=== PATIENT | female | born 1955 | race Caucasian/White ===

== ENCOUNTER 2023-02-02 13:03 | Outpatient (AMB) | payer BC, SELFPAY ==
[2023-02-02 13:06] VITALS: BP 128/84; BMI 34.0
--- NOTE | 2023-02-02 13:06 | A.OFFVIS_ITS ---
Intake Vital Signs 02/02/23 13:06 Height 5 ft 4 in Weight 198 lb 2 oz BMI 34.0 BP 128/84 Blood Pressure Location Lt brachial Position Sitting Intake Visit Reasons: ENP-Cognitive Assessment-Confirmed Allergies methimazole [From Tapazole] Allergy (Severe, Verified 02/02/23 13:12) Hives cephapirin [From Cefadyl] Allergy (Mild, Verified 02/02/23 13:12) Hives nitroglycerin Allergy (Mild, Verified 02/02/23 13:12) Chest Pain HPI HPI Comments History of Present Illness Details 67 y/o female patient presents for [facility] n-person visit for evaluation of cognitive difficulties. Pt reports difficulty concentrating, remembering, problem solving and organizing. The symptoms have worsened after COVID-19 (she had COVID in Nov, 2021). Pt has hx of severe degree of CHUN, ADD, anxiety and depression. Pt had a brain MRI and MRA (May,) done. MRI result was diffuse white matter changes with global volume loss. 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 In December, after returning to work after Covid-19, she had difficulty completing her job, increased significantly to the point that she would come in on her days off to complete the task. In Mar 2022, she has received partially meets expectation on her employee review for the first time. Also she had medication error when she was completing a final verification for a controlled substance. She was interrupted to combine a different package. At time she accidentally added the incorrect medications to the package resulting in a controlled substance error. At the time of the evaluation, she taken a medical leave from her job. Pt had a neuropsychology evaluation done 09/05 and recommendation for accommodation at work if/when she tries to return to pharmacy, but patient does not feel ready to return. Pt tried stimulant to manage ADD, but not tolerated. She also had defect and open heart surgery, not recommended to have stimulant for ADD. She is on bupropion now, tolerating but no memory improvement. She sees her therapist weekly to manage depression and anxiety. She has hx of severe degree of sleep apnea, diagnosed in 2010. She was 255 lb at that time, she lost about 60 lb, no repeat sleep done since then. Pt reports he had a lab done in May, and was told that the result was WNL. [facility] Surgical History (Updated 02/02/23 @ 13:15 by Anna Munoz) History of open heart surgery Family History (Updated 02/02/23 @ 13:17 by Anna Munoz) Mother Heart abnormality Brother Obesity Social History (Updated 02/02/23 @ 13:17 by Anna Munoz) Household Members: None Alcohol intake: never Patient Tobacco Use Status: Never used Tobacco Review of Systems Const All systems reviewed & are unremarkable except as noted in HPI and below Physical Exam Vital Signs: Last Vital Signs BP 128/84 02/02/23 13:06 BMI result Body Mass Index 34.0 Const General: cooperative and anxious Nutritional Appearance: obese Orientation/consciousness: patient oriented x3 Neck Neck: Yes full ROM and Yes supple Resp Effort & Inspection: normal respiratory effort and able to speak in complete sentences Neuro General: patient oriented x3, gait normal, moves all extremities and CN's II-XI intact bilaterally Cranial nerves: Yes CN's II-XII intact bilaterally Cognition (Neuro): normal cognition Gait exam (Neuro): Normal gait present Motor exam (neuro): 5/5 motor strength present throughout, Pronator motor function not present and no tremor noted Deep tendon reflexes (DTR's): Rt Biceps (C5, C6): 2+, Left biceps reflex intensity grade: 2+, Right brachioradialis reflex intensity grade: 2+, Left brachioradialis reflex intensity grade: 2+, Right patellar reflex intensity grade: 2+ and Left patellar reflex intensity grade: 2+ Psych Appearance: grossly normal Mental Status: mental status grossly normal Speech and movement: Normal speech and movement present Affect: Anxious affect present Attitude: cooperative Orientation What is the (year) (season) (date) (day) (month)?: year, season, date, day and month Where are we (state) (county) (town or city) (hospital) (floor)?: state, county, town or city and hospital/clinic Registration Name of 3 unrelated objects clearly and slowly, then ask patient to repeat all 3 of them. (1st repeat determines score. Make sure they can repeat all three): object 1, object 2 and object 3 Attention & Calculation (CHOOSE ONE) Spell WORLD backwards (DLROW): 5 letters Recall Ask patient to repeat the 3 items from question #3.: object 1, object 2 and object 3 Language Show patient a wristwatch & ask what it is. Repeat for pencil.: watch and pencil Ask the patient to repeat the phrase 'No ifs, ands, or buts' after you.: correct Ask the patient to 'take a piece of paper with their right hand' 'fold paper in half' 'place paper on floor': take paper in right hand, fold paper in half and place paper on floor Print the sentence 'CLOSE YOUR EYES' on a piece. If patient actually closes eyes then score.: followed written direction Give patient a blank piece of paper & ask to write a sentence. Score if it contains a noun & verb.: sentence contains subject and verb Ask patient to copy figure of intersecting pentagons exactly. Score if all 10 angles & 2 intersects are included.: all 10 angles present & 2 are intersected Score Score: 29 Assessment & Plan Assessment & Plan (1) ADHD (attention deficit hyperactivity disorder): Code(s): F90.9 - Attention-deficit hyperactivity disorder, unspecified type (2) Cognitive impairment: Code(s): R41.89 - Other symptoms and signs involving cognitive functions and awareness (3) CHUN on CPAP: Comment: Hx of severe degree of sleep apnea. The AHI was 50/hr. Code(s): G47.33 - Obstructive sleep apnea (adult) (pediatric) Plan Pt did well on MMSE. Pt's symptoms consistent with ADHD as neuropsychology evaluation. Advised patient to have consultation for ADHD with her therapist. Refer patient to speech therapy for cognitive therapy. Advised patient to undergo in lab sleep study to assess sleep apnea. Orders: Orders RT PSG in-lab sleep study 02/02/23 G47.33 - Obstructive sleep apnea (adult) (pediatric) Referrals Speech and Hearing Referral R41.89 - Other symptoms and signs involving cognitive functions and awareness, F90.9 - Attention-deficit hyperactivity disorder, unspecified type Coding Level of Care Code New Pt Level 4 (74226) Diagnoses ADHD (attention deficit hyperactivity disorder) F90.9 Cognitive impairment R41.89 CHUN on CPAP G47.33
== END 2023-02-02 14:18 | disposition home or self-care (01) ==
PROVIDERS: PCP Internal Medicine; Visit Provider Nurse Practitioner Family
DX: F90.9 Attention-deficit hyperactivity disorder, unspecified type (principal); R41.89 Other symptoms and signs involving cognitive functions and awareness; G47.33 Obstructive sleep apnea (adult) (pediatric)
CPT/HCPCS: 99204

== ENCOUNTER → 2023-02-02 13:03 | Outpatient (BNVA) | payer BC, SELFPAY | PROVIDERS: PCP Internal Medicine; Visit Provider Nurse Practitioner Family ==

== ENCOUNTER → 2023-02-23 20:30 | Outpatient (REF) | payer BC, SELFPAY | LOC: HO.SL 20:30 | PROVIDERS: PCP Internal Medicine; Visit Provider Nurse Practitioner Family | DX: G47.33 Obstructive sleep apnea (adult) (pediatric) (principal) | CPT/HCPCS: 95810 ==

== ENCOUNTER → 2023-02-23 22:42 | Outpatient (BNV) | payer BC, SELFPAY | PROVIDERS: PCP Internal Medicine; Visit Provider Psychiatry & Neurology Neurology | DX: G47.33 Obstructive sleep apnea (adult) (pediatric) (principal) | CPT/HCPCS: 95810 ==

== ENCOUNTER 2023-04-13 08:56 | Outpatient (AMB) | payer BC, SELFPAY ==
--- NOTE | 2023-04-13 08:58 | MHC.OFFVIS ---
Intake Vital Signs 04/13/23 09:04 Height 5 ft 4 in Weight 196 lb 4 oz BMI 33.7 BP 124/90 H Blood Pressure Location Lt brachial Position Sitting Pulse 61 Pulse Source Pulse Oximeter Pulse Oximetry (%) 100 Oxygen Delivery Method Room Air Intake Visit Reasons: Follow Up-CONF Intake Note: Patient presents for f/u. Allergies methimazole [From Tapazole] Allergy (Severe, Verified 04/13/23 09:02) Hives cephapirin [From Cefadyl] Allergy (Mild, Verified 04/13/23 09:02) Hives nitroglycerin Allergy (Mild, Verified 04/13/23 09:02) Chest Pain HPI HPI Comments History of Present Illness Details 67 y/o female patient presents for follow up of cognitive difficulties and sleep study. Pt reports difficulty concentrating, remembering, problem solving and organizing. The symptoms have worsened after COVID-19 (she had COVID in Nov, 2021). Pt has hx of severe degree of CHUN, ADHD, anxiety and depression. Pt had a brain MRI and MRA (May,) done. MRI result was diffuse white matter changes with global volume loss. 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 In December, after returning to work after Covid-19, she had difficulty completing her job, increased significantly to the point that she would come in on her days off to complete the task. In Mar 2022, she has received partially meets expectation on her employee review for the first time. Also she had medication error when she was completing a final verification for a controlled substance. She was interrupted to combine a different package. At time she accidentally added the incorrect medications to the package resulting in a controlled substance error. At the time of the evaluation, she taken a medical leave from her job. Pt had a neuropsychology evaluation done 09/05 and recommendation for accommodation at work if/when she tries to return to pharmacy, but patient does not feel ready to return. Pt is now on bupropion 150 mg qAM and 300 mg daily to manage ADHD, and she is tolerated. However, still distracted easily, difficulty organizing and problem solving. She also had defect and open heart surgery, not recommended to have stimulant for ADHD. Pt also referred to speech therapy and scheduled next week. She is in executive function improvement program. She sees her therapist weekly to manage depression and anxiety. She has hx of severe degree of sleep apnea, diagnosed in 2010. Pt had a repeat sleep study done. The PSG sleep study result was significant for mild degree of sleep apnea with increased severity in REM. The AHI was 9/hr, REM AHI was 23/hr and oxygen armani was 87%. APAP [id number] ordered. Pt reports she has received CPAP last week and not started yet. Pt wants wt management referral. [facility] Surgical History History of open heart surgery Family History Mother Heart abnormality Brother Obesity Social History Household Members: None Alcohol intake: never Patient Tobacco Use Status: Never used Tobacco Review of Systems Const All systems reviewed & are unremarkable except as noted in HPI and below Physical Exam Vital Signs: Last Vital Signs Pulse 61 04/13/23 09:04 BP 124/90 H 04/13/23 09:04 Pulse Ox 100 04/13/23 09:04 Oxygen Delivery Method Room Air 04/13/23 09:04 BMI result Body Mass Index 33.7 Const General: cooperative and anxious Nutritional Appearance: obese Orientation/consciousness: patient oriented x3 Neck Neck: Yes full ROM and Yes supple Resp Effort & Inspection: normal respiratory effort and able to speak in complete sentences Neuro General: patient oriented x3, gait normal, moves all extremities and CN's II-XI intact bilaterally Cranial nerves: Yes CN's II-XII intact bilaterally Cognition (Neuro): normal cognition Gait exam (Neuro): Normal gait present Motor exam (neuro): 5/5 motor strength present throughout, Pronator motor function not present and no tremor noted Deep tendon reflexes (DTR's): Rt Biceps (C5, C6): 2+, Left biceps reflex intensity grade: 2+, Right brachioradialis reflex intensity grade: 2+, Left brachioradialis reflex intensity grade: 2+, Right patellar reflex intensity grade: 2+ and Left patellar reflex intensity grade: 2+ Psych Appearance: grossly normal Mental Status: mental status grossly normal Speech and movement: Normal speech and movement present Affect: Anxious affect present Attitude: cooperative Assessment & Plan Assessment & Plan (1) Difficulty concentrating: Code(s): R41.840 - Attention and concentration deficit (2) ADHD (attention deficit hyperactivity disorder): Code(s): F90.9 - Attention-deficit hyperactivity disorder, unspecified type (3) CHUN on CPAP: Comment: Mild degree of sleep apnea with increased severity in REM. The AHI was 9/hr, REM AHI was 23/hr and oxygen armani was 87%. Code(s): G47.33 - Obstructive sleep apnea (adult) (pediatric) Plan Advised patient to start APAP [id number]. Stressed compliance, use CPAP nightly and more than 4 hrs. Refer patient to wt management. Start speech therapy. [facility] paperwork filled out Orders: Referrals Medical Weight Management Referral E66.9 - Obesity, unspecified, G47.33 - Obstructive sleep apnea (adult) (pediatric) Coding Level of Care Code Est Pt Level 4 (44478) Diagnoses Difficulty concentrating R41.840 ADHD (attention deficit hyperactivity disorder) F90.9 CHUN on CPAP G47.33 Time Spent (min) 45
[2023-04-13 09:04] VITALS: BP 124/90; PULSE 61; O2SAT 100; BMI 33.7
== END 2023-04-13 09:47 | disposition home or self-care (01) ==
PROVIDERS: PCP Internal Medicine; Visit Provider Nurse Practitioner Family
DX: F90.8 Attention-deficit hyperactivity disorder, other type (principal); G47.33 Obstructive sleep apnea (adult) (pediatric)
CPT/HCPCS: 99214

== ENCOUNTER → 2023-04-13 08:56 | Outpatient (BNVA) | payer BC, SELFPAY | PROVIDERS: PCP Internal Medicine; Visit Provider Nurse Practitioner Family ==

== ENCOUNTER 2023-05-02 12:57 | Outpatient (RCR) | payer BC, SELFPAY ==
--- NOTE | 2023-05-03 11:33 | MHC.SP.ADU ---
Referring provider: Benjamín Pantoja CNP Reason for Referral: cognitive therapy Type of Treatment: 95492 Standardized Cognitive Performance Testing, per hour Date of Plan of Treatment: 05/02/23 Onset of Symptoms/Illness: 11/14/21 Date Treatment Started: 05/02/23 Primary Speech Language Diagnosis: R41.841 Cognitive communication disorder History Becky is a 67 year old female referred to [facility] for cognitive speech therapy by Benjamín Pantoja CNP, at [facility]. She reports that she began experiencing increased difficulty with concentration, memory, problem solving, and organizing after having COVID-19 in November 2021. These cognitive difficulties presented challenges in Becky?s work and personal life. She reports that she frequently loses objects, has difficulty remembering appointments, and forgets quickly what friends say during conversations. Because of this she typically relies on her GPS when driving and often asks conversation partners questions that they have already provided the answer to. 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 She reports that paperwork that she had previously done with ease was causing her to second guess what she was doing. She received a poor performance review at work in April 2022, which she reports was very much out of the ordinary. Previously, she had typically been recognizing for doing well in her position and received leadership accolades. Becky has been on medical leave since May 2022. In August 2022, Becky was seen for a neuropsychology evaluation, with [employer] in [place], which recommended accommodations at work. Becky reportedly has not felt comfortable or confident to return to work due to her current cognitive challenges. Becky recently scored 29/30 on the Mini-Mental State Examination (MMSE). She reports that the first time she was administered this test after November 2021, she scored in the lower 20s and was told her score was ?borderline? but would be expected to be higher due to her education. Becky had a brain MRI and MRI done in May 2022 which noted diffuse white matter changes with global volume loss. Becky reports that she has been told by doctors that she likely has Long COVID. 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 Becky reports that she was previously seeing a fish and wildlife warden who specialized in executive functioning, which she found helpful but had to discontinue due to financial reasons. She is interested in attending weekly cognitive therapy sessions to help support memory and executive functioning in her personal life with a potential to return to work. Medical History: ADHD Anxiety Hypertrophic Cardiomyopathy Thyroid issues: Graves Disease Surgical Hx: Open Heart Surgery June 2020 Brain MRI 06/12/2022 Medication List: Levothyroxine (12 mcg daily) Simvastatin (10 mg/bedtime) Recent Hospitalizations: No Respiratory Needs: Room Air Social History: Employment Status: Unemployed, Medical leave Highest level of education obtained: Completed Bachelor's Current Living Situation: Lives alone in private residence Assistive Devices in use: None observed/reported Past Speech Language Therapy: None Other Therapies Seen in Current Calendar Year: None Reported Speech, Language, Cognition difficulties: Attention Reading Memory Speaking Problem Solving Comments: Difficulty with memory and problem solving started 2021 Difficulty with focusing/attention was present prior but worsened in 2021 Assessment Tests of Cognition: RBANS RBANS: Repeatable Battery for the Assessment of Neuropsychological Status The RBANS-Updated Form A assesses aspects of cognitive memory, language, and attention skills. The RBANS is considered a screening battery for cognitive function and is repeatable for the purpose of evaluating any changes in function. It is intended for use with adolescents and adults, ages 12 to 89 years. Composite domains assessed in this test are: Immediate Memory, Visuospatial/Constructional, Language, Attention, and Delayed Memory. Becky?s performance is summarized below: IMMEDIATE MEMORY: This domain assesses the individual's ability to remember information immediately after it is presented. Becky was read a list of 10 words and asked to repeat back as many words as she could. Upon the first reading of the wordlist, Becky recalled 3 words accurately. The word list was repeated three additional times and Becky was able to recall an increasing number of words. Becky was then read aloud a story and asked to recall as many details as possible. Upon the first reading of the story, Becky recalled 5 of 12 jimenez details. Following the second reading, Becky recalled all 12 jimenez details. Because Becky was able to recall more words from a wordlist and more details of a story with subsequent repetitions, this may indicate that repetition of information is a strategy to help facilitate memory recall. List Learning Total Score: 22 Scaled Score: 6 Interpretation: Low Average Story Memory Total Score: 17 Scaled Score: 11 Interpretation: Average Immediate Memory Index Score: 90 Interpretation: Average VISUOSPATIAL/CONSTUCTIONAL: This domain assesses the individual's ability to perceive spatial relations and to construct a spatially accurate copy of a drawing. During the Figure Copy task, Becky was given an example of a specific figure to copy onto a piece of paper. She presented with difficulty with size and location of placing specific details of the figure onto the paper. She also demonstrated difficulty in the Line Orientation task in which she was asked to match two lines below to a series of numbered lines above. 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 Figure Copy Total Score: 14 Scaled Score: 4 Interpretation: Borderline Line Orientation Total Score: 9 Percentile Group: =2 Interpretation: Extremely Low Visuospatial/Constructional Index Score: 64 Interpretation: Extremely Low LANGUAGE: This domain assesses the individual's ability to respond verbally to either naming or retrieving learned material. Becky presents with a relative strength of naming the word of various line drawings presented, scoring 10/10. She was then asked to name as many fruits and vegetables as she could in one minute in a Semantic Fluency task. She presented as confident with this task stating ?I am good with fruits and vegetables!? and quickly named 6 items in the first 15 seconds before getting stuck on ?other melon? while searching for the name for cantaloupe. This was the only time during the evaluation that Becky presented with difficulty word finding. Picture Naming Total Score: 10 Percentile Group: 51-75 Interpretation: Average Semantic Fluency Total Score: 11 Scaled Score: 3 Interpretation: Extremely Low Language Index Score: 82 Interpretation: Low Average ATTENTION: This domain assesses the individual's capacity to remember and manipulate both visually and orally presented information in short-term memory storage Becky presents with a strength recalling strings of numbers that were read aloud to her in the Digit Span subtest. She quickly and confidently recalled up to 8 digits and scored in superior range on this subtest. Becky demonstrated difficulty with the Coding subtest in which she was asked to write numbers to their matching symbols as quickly and efficiently as possible within 90 seconds. During the practice portion of this subtest, she had 3 errors in the first 9 symbols. Becky was observed to talk aloud to herself through this task. For example, ?The backwards L is 4?? Digit Span Total Score: 14 Scaled Score: 15 Interpretation: Superior Coding Total Score: 23 Scaled Score: 3 Interpretation: Extremely Low Attention Index Score: 94 Interpretation: Average DELAYED MEMORY: This domain assesses the individual's anterograde memory capacity. Low scores indicate difficulties with recognition and retrieval of information from long-term memory stores. Becky presented with a relative strength in delayed memory, with the exception of the visuospatial Figure Copy task. She demonstrated a greater strength with recognizing the words in the 10-wordlist than recalling the words without any cueing. She also demonstrated a greater strength recalling the details of a story. This may indicate that recognition cueing and storytelling may be incorporated into strategies to support Becky?s memory. List Recall Total Score: 5 Percentile Group: 26-50 Interpretation: Average List Recognition Total Score: 20 Percentile Group: 51-75 Interpretation: Average Story Recall Total Score: 12 Scaled Score: 15 Interpretation: Superior Figure Recall Total Score: 8 Scaled Score: 6 Interpretation: Low Average Delayed Memory Index Score: 98 Interpretation: Average Sum of Index Scores: 428 Total Scale Score: 81 Percentile: 10 Mandi Pathak (1998). Repeatable Battery for the Assessment of Neuropsychological Status [Manual]. ANAMIKA Morris: Mc. Impressions and Recommendations Summary: Impact on Daily Function/Activity Limitations: Daily Activities: Moderate Interpersonal Interactions: Moderate Employment: Severe Prognosis for Improvement: Good Recommendation for Speech Therapy: Outpatient Speech Therapy It is recommended that Becky attend weekly 1-1 outpatient cognitive therapy sessions with a Speech-Langauge Pathologist to target the cognitive skills of memory and executive functioning. Frequency/Duration: 1x/week x 12 weeks Time to Reassess: 3 months Assisted Goals: LTG 1 Becky will complete additional standardized testing to obtain standardized scores and update goals as appropriate. LTG 2 Becky will improve cognitive skills in the area of memory Short Term Goals: STG 1.1 Becky will complete the Cognitive Linguistic Quick Test (CLQT) with 100% completion to better inform goals. STG 2.1 Becky will recall independently 2-3 memory strategies with 100% accuracy. STG 2.2 Becky will recall list of 10 items presented to her orally with 80% accuracy when provided with moderate assistance. STG 2.3 Becky will recall 3 jimenez details from information presented to her orally (i.e. conversation, voicemail, paragraph) in 4 out of 5 opportunities when provided with moderate assistance. Patient Education: Completed: Yes Patient/Caregiver Education: Described Results of Evaluation Patient expressed understanding of evaluation Patient agrees with goals and treatment plan Visual C Developer Clinican/Clinical Fellow: No Supervisory Statement: N/A Speech Language Pathologist: Stacy Collins M.A., CCC-MANAGER GRANT
== END 2023-06-20 10:03 | disposition still patient (30) ==
LOC: HO.SH 12:57
PROVIDERS: Visit Provider Nurse Practitioner Family
DX: R41.89 Other symptoms and signs involving cognitive functions and awareness (principal); F90.9 Attention-deficit hyperactivity disorder, unspecified type
CPT/HCPCS: 96125

== ENCOUNTER 2023-06-13 11:25 | Outpatient (AMB) | payer BC, SELFPAY ==
--- NOTE | 2023-06-13 11:28 | A.OFFVIS_ITS ---
Vital Signs 06/13/23 11:30 Height 5 ft 4 in Weight 196 lb BMI 33.6 BP 122/84 Blood Pressure Location Rt brachial Position Sitting Pulse 71 Pulse Source Pulse Oximeter Pulse Oximetry (%) 98 Oxygen Delivery Method Room Air Intake Visit Reasons: 4 mo f/u Cognitive Assessment - Confirmed Intake Note: Patient presents for 4 month follow up. Allergies methimazole [From Tapazole] Allergy (Severe, Verified 06/13/23 11:31) Hives cephapirin [From Cefadyl] Allergy (Mild, Verified 06/13/23 11:31) Hives nitroglycerin Allergy (Mild, Verified 06/13/23 11:31) Chest Pain Medication List - Last Reconciled 06/13/23 by LOGAN Alejo bimatoprost 0.01% (Lumigan) 1 drp ophthalmic (eye) DAILY bumetanide 1 mg PO DAILY bupropion HCl XL 150 mg PO QAM bupropion HCl XL 300 mg PO DAILY dorzolamide-timolol (PF) 2-0.5 % (Cosopt (PF)) 1 drp ophthalmic (eye) BID levothyroxine 112 mcg PO DAILY simvastatin 10 mg PO DAILY HPI Comments Details: 67-yr-old female presents for f/u visit for MCI and CHUN. Pt was previously seen by Jony Pantoja NP. Pt denies any significant interval medical changes. Pt reports she continues to have cognitive difficulties, visual perception difficulties. She states she does have a h/o ADD. 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 States she was advised to consider trying a neurostimulant, however she is concerned about cardiac risks of these medications d/t her h/o hypertrophic cardiomyopathy. She is s/p cardiac surgical repair and is still f/b cardiology at [facility]. Pt states she has been seeing juan alberto Hong, however does not think he will see her again if she does not start a neurostimulant. In the past, she tried Strattera and did not tolerate it, Adderral ER- caused cardiac s/s (prior to sx repair). She does take an almost daily walk. 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 Pt states that she was told this was not r/t her glaucoma. Pt denies h/o acute vision change, acute eye pain. She had been using her APAP, but in the last several days she just has not used it. Compliance Report Usage 05/06/2023 - 06/04/2023, Usage days 16/30 days (53%) Usage >= 4 hours 11 days (37%) Average usage (days used) 5 hours 6 minutes AirSense 11 AutoSet Serial number [id number] Mode AutoSet Min 5- 20 cmH2O, w/ Max pressure 8.1 cmH2O. EPR Fulltime EPR level 2 Residual AHI 0.4/hr 06/13/23, Brain MRI w/o: IMPRESSION: 1. No acute/subacute infarct, mass, acute hemorrhage, or other acute intracranial abnormality. 2. 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 3. Mild scattered T2/FLAIR hyperintense foci in the white matter, nonspecific but most likely reflecting chronic small vessel disease. [facility] Surgical History History of open heart surgery Family History Mother Heart abnormality Brother Obesity Social History Household Members: None Alcohol intake: never Patient Tobacco Use Status: Never used Tobacco Physical Exam Vital Signs: Last Vital Signs Pulse 71 06/13/23 11:30 BP 122/84 06/13/23 11:30 Pulse Ox 98 06/13/23 11:30 Oxygen Delivery Method Room Air 06/13/23 11:30 BMI result Body Mass Index 33.6 Const General: cooperative and no acute distress Orientation/consciousness: patient oriented x3 Resp Effort & Inspection: normal respiratory effort and able to speak in complete sentences Neuro General: patient oriented x3 Cranial nerves: Yes CN's II-XII intact bilaterally Cognition (Neuro): normal cognition Psych Appearance: grossly normal Mental Status: mental status grossly normal Speech and movement: Normal speech and movement present Affect: normal affect Attitude: cooperative Assessment & Plan Assessment & Plan (1) CHUN on CPAP: Comment: Mild degree of sleep apnea with increased severity in REM. The AHI was 9/hr, REM AHI was 23/hr and oxygen armani was 87%. Code(s): G47.33 - Obstructive sleep apnea (adult) (pediatric) Category: Medical (2) Cognitive impairment: Code(s): R41.89 - Other symptoms and signs involving cognitive functions and awareness Category: Medical (3) ADHD (attention deficit hyperactivity disorder): Code(s): F90.9 - Attention-deficit hyperactivity disorder, unspecified type Category: Medical (4) Difficulty concentrating: Code(s): R41.840 - Attention and concentration deficit Category: Medical Plan Pt encouraged to increase APAP use, as when used, pt has good redcution in residual AHI. Continue regular physical activity. Continue cognitive strategies. Pt advised that both [facility] [place], which we could refer pt to request guidance on medication strategies to optimize cognitive functioning w/o exacerbating cardiac s/s. Pt will discuss w/ Dr Anderson. Reviewed previous brain MRI w/o. Consider repeat f/u at f/u to monitor white matter lesion and hemosiderin staining burden. Will request recent eye exam and lab reports. Pt advised to undergo Visual Evoked Potential. Orders: Orders Visual evoked potential Today H47.20 - Unspecified optic atrophy Coding Level of Care Code Est Pt Level 3 (01561) Diagnoses CHUN on CPAP G47.33 Cognitive impairment R41.89 ADHD (attention deficit hyperactivity disorder) F90.9 Difficulty concentrating R41.840
[2023-06-13 11:30] VITALS: BP 122/84; PULSE 71; O2SAT 98; BMI 33.6
== END 2023-06-13 12:21 | disposition home or self-care (01) ==
PROVIDERS: Absent Provider Nurse Practitioner Family; PCP Internal Medicine; Visit Provider Nurse Practitioner Family
DX: G47.33 Obstructive sleep apnea (adult) (pediatric) (principal); R41.89 Other symptoms and signs involving cognitive functions and awareness; F90.9 Attention-deficit hyperactivity disorder, unspecified type
CPT/HCPCS: 99213

== ENCOUNTER → 2023-06-13 11:25 | Outpatient (BNVA) | payer BC, SELFPAY | PROVIDERS: Absent Provider Nurse Practitioner Family; PCP Internal Medicine; Visit Provider Nurse Practitioner Family ==

== ENCOUNTER 2023-06-24 14:01 | Outpatient (RCR) | payer BC, SELFPAY ==
--- NOTE | 2023-10-19 15:48 | MHC.SL.SOA ---
Referring Provider: Benjamín Pantoja CNP Reason for Referral: cognitive therapy Date of Plan of Treatment:05/02/23 Onset of Symptoms/Illness:11/14/21 Date Treatment Started:05/02/23 Primary Speech Language Diagnosis:R41.841 Cognitive communication disorder Reason for Visit: Non-billable Event Other: Discharge Note Background: Becky is a 67 year old female who was evaluated for speech therapy at [facility] in April 2023. During the evaluation, she reported that she began experiencing increased difficulty with concentration, memory, problem solving, and organizing after having COVID-19 in November 2021. These cognitive difficulties presented challenges in Becky?s work and personal life. She reported that she frequently loses objects, has difficulty remembering appointments, and forgets quickly what friends say during conversations. Because of this she typically relies on her GPS when driving and often asks conversation partners questions that they have already provided the answer to. 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 She reports that paperwork that she had previously done with ease was causing her to second guess what she was doing. She received a poor performance review at work in April 2022, which she reports was very much out of the ordinary. Previously, she had typically been recognizing for doing well in her position and received leadership accolades. Becky has been on medical leave since May 2022. In August 2022, Becky was seen for a neuropsychology evaluation, with [facility] in [place], which recommended accommodations at work. Becky reportedly has not felt comfortable or confident to return to work due to her current cognitive challenges. Becky recently scored 29/30 on the Mini-Mental State Examination (MMSE). She reports that the first time she was administered this test after November 2021, she scored in the lower 20s and was told her score was ?borderline? but would be expected to be higher due to her education. Becky had a brain MRI and MRI done in May 2022 which noted diffuse white matter changes with global volume loss. Becky reports that she has been told by doctors that she likely has Long COVID. 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 Becky reports that she was previously seeing a regional vice president life sales who specialized in executive functioning, which she found helpful but had to discontinue due to financial reasons. She is interested in attending weekly cognitive therapy sessions to help support memory and executive functioning in her personal life with a potential to return to work. Beck[place] [facility] [place] which was focused on additional testing (CLQT+), review of initial evaluation, and discussing the of goals of therapy. Becky called and cancelled the following week on 07/01/23 and was a no show on 07/08/23. After the no show, this clinician called and spoke to Becky who reported that she had forgotten about the appointment due to some other challenges in her life at the moment. She reported uncertainty with insurance coverage moving forward which prompted her to discontinue speech therapy at that time. She expressed interest in returning to speech therapy at a later date once insurance and life uncertainties are sorted out. Becky was informed that she will be put back on the waitlist. Becky was sent a copy of her evaluation via secure email per her request. Plan: Becky was taken off the speech therapy schedule in June 2023 and put back on the waitlist to work out insurance coverage. In October 2023, the clinic spoke with Becky and she expresses preference to manage things on my own and not to return to speech therapy. Based on Becky's standardized testing and self reporting during her initial evaluation and one speech therapy session, it was recommended that Becky attend speech therapy to target cognitive-linguistic skills in the areas of memory and executive functioning. Becky is encouraged to reach out in the future should she wish to re-start speech therapy. STG 1.1 Becky will complete the Cognitive Linguistic Quick Test (CLQT+) with 100% completion to better inform goals. Status of Goal: Goal Met Note: On this test, Becky demonstrated opportunity for growth in executive functioning skills. No goals were added in this area as Becky then discontinued speech therapy services. STG 2.1 Becky will recall independently 2-3 memory strategies with 100% accuracy. STG 2.2 Becky will recall list of 10 items presented to her orally with 80% accuracy when provided with moderate assistance. STG 2.3 Becky will recall 3 jimenez details from information presented to her orally (i.e. conversation, voicemail, paragraph) in 4 out of 5 opportunities when provided with moderate assistance. Status of Goal: Goal Continued Note: Based on standardized testing, these goals are recommended should Becky choose to continue speech therapy at a later date. Goals were not targeted due to time constraints of only being seen for one session which focused on review of original evaluation and additional testing with CLQT+ Seen by: Graduate/Clinical Fellow: No Supervisory Statement: f_Reg Query Last Value , MHC.AU.SIGNAT Speech Language Pathologist: Stacy Collins M.A., CCC-WIRELESS SALES ASSOCIATE
== END 2023-10-20 09:23 | disposition home or self-care (01) ==
LOC: HO.SH 14:01
PROVIDERS: PCP Internal Medicine; Visit Provider Nurse Practitioner Family
DX: R41.89 Other symptoms and signs involving cognitive functions and awareness (principal); F90.9 Attention-deficit hyperactivity disorder, unspecified type
CPT/HCPCS: 92507

== ENCOUNTER 2023-12-22 09:56 | Outpatient (AMB) | payer OTHER, MEDICARE, SELFPAY ==
--- NOTE | 2023-12-22 10:45 | A.OFFVIS_ITS ---
Vital Signs 12/22/23 10:46 Height 5 ft 4 in Weight 187 lb 6 oz BMI 32.2 BP 152/70 H Blood Pressure Location Rt brachial Position Sitting Pulse 61 Pulse Source Pulse Oximeter Pulse Oximetry (%) 98 Oxygen Delivery Method Room Air Intake Visit Reasons: 7 month F/U [place] Operator Required: No Accompanied by: Self / Same As Patient Allergies methimazole [From Tapazole] Allergy (Severe, Verified 12/22/23 10:52) Hives cephapirin [From Cefadyl] Allergy (Mild, Verified 12/22/23 10:52) Hives nitroglycerin Allergy (Mild, Verified 12/22/23 10:52) Chest Pain Medication List - Last Reconciled 12/22/23 by Rosa Sales, LOGAN bimatoprost 0.01% (Lumigan) 1 drp ophthalmic (eye) DAILY bumetanide 1 mg PO DAILY dorzolamide-timolol (PF) 2-0.5 % (Cosopt (PF)) 1 drp ophthalmic (eye) BID levothyroxine 112 mcg PO DAILY simvastatin 10 mg PO DAILY Do you need a note to return to daycare/school/sports/work: No HPI Comments Details: 68-yr-old female presents for f/u visit for MCI and CHUN. Pt denies any significant interval medical changes. Pt reports she has retired. Pt reports some cognitive difficulties, such as with paperwork. Found herself taking a long time to vote the other day. She had MAIL ORDER BILLER eval, though did not have f/u tx's- d/t insurnace issues and then per note, decision to work on [employer] herself. She decided to stop the CPAP, as she felt it was too expensive and did not feel much benefit from it. When not using CPAP she does snore. She believes she needs to re-qualify to use her CPAP since she retired. She has been walking an hour a day on flat surface. The VEP was normal. She had her annual cardiac eval, echocardiogram was reassuring, wt is stable. Previous visit HPI, 06/13/23: Pt reports she continues to have cognitive difficulties, visual perception difficulties. She states she does have a h/o ADD. 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 States she was advised to consider trying a neurostimulant, however she is concerned about cardiac risks of these medications d/t her h/o hypertrophic cardiomyopathy. She is s/p cardiac surgical repair and is still f/b cardiology at [facility]. Pt states she has been seeing Dr Charlton neuro, however does not think he will see her again if she does not start a neurostimulant. In the past, she tried Strattera and did not tolerate it, Adderral ER- caused cardiac s/s (prior to sx repair). She does take an almost daily walk. 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 Pt states that she was told this was not r/t her glaucoma. Pt denies h/o acute vision change, acute eye pain. She had been using her APAP, but in the last several days she just has not used it. Compliance Report Usage 05/06/2023 - 06/04/2023, Usage days 16/30 days (53%) Usage >= 4 hours 11 days (37%) Average usage (days used) 5 hours 6 minutes AirSense 11 AutoSet Serial number [id number] Mode AutoSet Min 5- 20 cmH2O, w/ Max pressure 8.1 cmH2O. EPR Fulltime EPR level 2 Residual AHI 0.4/hr 06/13/23, Brain MRI w/o: IMPRESSION: 1. No acute/subacute infarct, mass, acute hemorrhage, or other acute intracranial abnormality. 2. 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 3. Mild scattered T2/FLAIR hyperintense foci in the white matter, nonspecific but most likely reflecting chronic small vessel disease. [facility] Surgical History History of open heart surgery Family History Mother Heart abnormality Brother Obesity Social History Household Members: None Alcohol intake: never Patient Tobacco Use Status: Never used Tobacco Physical Exam Vital Signs: Last Vital Signs Pulse 61 12/22/23 10:46 BP 152/70 H 12/22/23 10:46 Pulse Ox 98 12/22/23 10:46 Oxygen Delivery Method Room Air 12/22/23 10:46 BMI result Body Mass Index 32.2 Const General: cooperative and no acute distress Orientation/consciousness: patient oriented x3 Resp Effort & Inspection: normal respiratory effort and able to speak in complete sentences Neuro General: patient oriented x3 Cranial nerves: Yes CN's II-XII intact bilaterally Cognition (Neuro): normal cognition Psych Appearance: grossly normal Mental Status: mental status grossly normal Speech and movement: Normal speech and movement present Affect: normal affect Attitude: cooperative Assessment & Plan Assessment & Plan (1) CHUN on CPAP: Comment: Mild degree of sleep apnea with increased severity in REM. The AHI was 9/hr, REM AHI was 23/hr and oxygen armani was 87%. Code(s): G47.33 - Obstructive sleep apnea (adult) (pediatric) Category: Medical (2) Cognitive impairment: Code(s): R41.89 - Other symptoms and signs involving cognitive functions and awareness Category: Medical (3) ADHD (attention deficit hyperactivity disorder): Code(s): F90.9 - Attention-deficit hyperactivity disorder, unspecified type Category: Medical (4) Difficulty concentrating: Code(s): R41.840 - Attention and concentration deficit Category: Medical (5) Obstructive sleep apnea: Code(s): G47.33 - Obstructive sleep apnea (adult) (pediatric) Category: Medical (6) Snoring: Code(s): R06.83 - Snoring Category: Medical Plan Pt advised to undergo in-lab PSG to assess status of sleep apnea so that she may re-qualify for PAP tx.. Continue regular physical activity. Continue cognitive strategies. If cognitive s/s worsen, consider referal back to MAIL ORDER BILLER tx. Reviewed previous VEP- normal. Previous brain MRI w/o. Consider repeat f/u at f/u to monitor white matter lesion and hemosiderin staining burden. Orders: Orders RT PSG in-lab sleep titration 12/22/23 G47.33 - Obstructive sleep apnea (adult) (pediatric), R06.83 - Snoring, I51.7 - Cardiomegaly Coding Level of Care Code Est Pt Level 3 (71210) Diagnoses CHUN on CPAP G47.33 Cognitive impairment R41.89 ADHD (attention deficit hyperactivity disorder) F90.9 Difficulty concentrating R41.840 Obstructive sleep apnea G47.33 Snoring R06.83
[2023-12-22 10:46] VITALS: BP 152/70; PULSE 61; O2SAT 98; BMI 32.2
== END 2023-12-22 11:39 | disposition home or self-care (01) ==
LOC: HO.HSMS 09:56
PROVIDERS: PCP Internal Medicine; Visit Provider Nurse Practitioner Family
DX: G47.33 Obstructive sleep apnea (adult) (pediatric) (principal); R41.89 Other symptoms and signs involving cognitive functions and awareness; F90.9 Attention-deficit hyperactivity disorder, unspecified type; R06.83 Snoring
CPT/HCPCS: 99213

== ENCOUNTER → 2024-01-08 20:30 | Outpatient (REF) | payer MEDICARE, OTHER, SELFPAY | LOC: HO.SL 20:30 | PROVIDERS: PCP Internal Medicine; Visit Provider Nurse Practitioner Family | DX: G47.33 Obstructive sleep apnea (adult) (pediatric) (principal); R06.83 Snoring; I51.7 Cardiomegaly | CPT/HCPCS: 95811 ==

== ENCOUNTER → 2024-01-08 22:25 | Outpatient (BNV) | payer MEDICARE, OTHER, SELFPAY | PROVIDERS: PCP Internal Medicine; Visit Provider Psychiatry & Neurology Neurology | DX: G47.33 Obstructive sleep apnea (adult) (pediatric) (principal) | CPT/HCPCS: 95811 ==